=== PATIENT | female | born 1950 | race Caucasian/White ===

== ENCOUNTER 2017-04-09 09:35 | Outpatient (CLI) | payer MEDICARE, OTHER | END 2017-04-09 09:36 | disposition home or self-care (01) | LOC: LAB.R 09:35 | PROVIDERS: ATTEND Family Medicine | DX: R31.9 Hematuria, unspecified (principal) | CPT/HCPCS: 87086 ==

== ENCOUNTER 2017-04-22 15:12 | Outpatient (CLI) | payer MEDICARE, OTHER | END 2017-04-22 15:13 | disposition EMS.NT | LOC: EMS 15:12 | PROVIDERS: ATTEND Surgery | DX: R51 Headache (principal); M54.5 Low back pain; V02.00XA Pedestrian on foot injured in collision with two- or three-wheeled motor vehicle in nontraffic accident, initial encounter; Y92.512 Supermarket, store or market as the place of occurrence of the external cause ==

== ENCOUNTER 2017-04-22 15:47 | Emergency (ER) | payer MEDICARE, OTHER ==
[2017-04-22 15:54] VITALS: BP 135/73
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
--- NOTE | 2017-04-22 17:50 | CT Preliminary Report ---
Exam: CT Head W/O IMPRESSION: Mild chronic changes. No acute disease. [facility] SITE ID: [id number]
--- NOTE | 2017-04-22 17:52 | CT Report ---
EXAM: CT HEAD EXAM DATE: 04/22/2017 05:38 PM. CLINICAL HISTORY: Fall head injury. COMPARISON: None. TECHNIQUE: Multiaxial CT images were obtained from the foramen magnum to the vertex. IV contrast: Non e. Reformats: Coronal. In accordance with CT protocol optimization, one or more of the following dose reduction techniques w ere utilized for this exam: automated exposure control, adjustment of mA and/or KV based on patient s ize, or use of iterative reconstructive technique. FINDINGS: Parenchyma: No intraparenchymal hemorrhage. No evidence of mass, midline shift, or CT findings of acu te infarction. Mcfarlane-white differentiation is distinct. Extraaxial Spaces: Normal for age. No subdural or epidural collections. Ventricles: The ventricles and cortical sulci are enlarged, consistent with age-related tissue loss. Sinuses: Imaged paranasal sinuses, orbits, and mastoids show no significant abnormality. Bones: Unremarkable. Other: None. IMPRESSION: Mild chronic changes. No acute disease. [facility] Referring Provider Line: [phone] SITE ID: [id number]
[2017-04-22] MEDS ORDERED: ONDANSETRON ODT 4 MG TABLET TL STA (17:53)
[2017-04-22] MEDS ORDERED: IBUPROFEN 800 MG TABLET PO STA (17:53)
[2017-04-22] MEDS ORDERED: IBUPROFEN 800 MG TABLET PO ONE (18:02)
[2017-04-22] MEDS ORDERED: ONDANSETRON ODT 4 MG TABLET ONE (18:02)
== END 2017-04-22 18:55 | disposition home or self-care (01) ==
LOC: ED 15:47
DX: S09.90XA Unspecified injury of head, initial encounter (principal); S39.012A Strain of muscle, fascia and tendon of lower back, initial encounter; V09.9XXA Pedestrian injured in unspecified transport accident, initial encounter; Y92.512 Supermarket, store or market as the place of occurrence of the external cause
CPT/HCPCS: 70450; 99283; A9270; Q0162

== ENCOUNTER 2017-09-11 09:52 | Outpatient (CLI) | payer MEDICARE, OTHER ==
[2017-09-11 20:09] LABS: ALBUMIN/GLOBULIN RATIO 1.2 (1.0-2.2); BILIRUBIN,TOTAL 0.5 mg/dL (0.2-1.0); BUN - BLOOD UREA NITROGEN 11 mg/dL (6-20); CALCIUM 8.8 mg/dL (8.5-10.3); CARBON DIOXIDE - CO2 25 mmol/L (21-32); CHLORIDE 110 mmol/L (101-111); CHOL/HDL RATIO 5.6 (<4.4); CHOLESTEROL 280 mg/dL; CREATININE 0.9 mg/dL (0.4-1.0); GFR - MDRD 62 (>89); GLUCOSE 93 mg/dL (70-100); HDL CHOLESTEROL 50 mg/dL; LDL/HDL RATIO 4.1 (<4.4); POTASSIUM 3.9 mmol/L (3.5-5.0); SODIUM 138 mmol/L (135-145); TOTAL PROTEIN 7.1 g/dL (6.7-8.2); TRIGLYCERIDES 137 mg/dL; VLDL CHOLESTEROL 27 mg/dL
== END 2017-09-11 09:53 | disposition home or self-care (01) ==
LOC: LAB.WCP 09:52
PROVIDERS: ATTEND Family Medicine
DX: F32.9 Major depressive disorder, single episode, unspecified (principal); E78.5 Hyperlipidemia, unspecified; G25.0 Essential tremor
CPT/HCPCS: 36415; 80053; 80061

== ENCOUNTER 2018-02-25 23:45 | Emergency (ER) | payer MEDICARE, OTHER ==
--- NOTE | 2018-02-26 00:14 | ED Physician Documentation ---
PD HPI ABD PAIN - Stated complaint Stated Complaint: R SIDE/BACK PX - Chief complaint Chief Complaint: Abd Pain - History obtained from History obtained from: Patient - History of Present Illness Timing - onset: Enter time (18:00), Today Timing - duration: Hours Timing - details: Abrupt onset, Waxing and waning Quality: Pain Location: RLQ Radiation: Right flank Improved by: Other (no ameliorating factors) Worsened by: Other (no exacerbating factors) Associated symptoms: Nausea, Vomiting, Diarrhea. No: Fever, Constipation Recently seen: Not recently seen Review of Systems Constitutional: denies: Fever Cardiac: reports: Reviewed and negative Respiratory: reports: Reviewed and negative GI: reports: Abdominal Pain, Nausea, Vomiting, Diarrhea : denies: Dysuria, Frequency, Hematuria PD PAST MEDICAL HISTORY - Past Medical History Past Medical History: Yes Neuro: Tremors - Past Surgical History Past Surgical History: Yes HEENT: Tonsil/Adenoidectomy Derm: Skin cancer surgery - Allergies Allergies/Adverse Reactions: Allergies Allergy/AdvReac Type Severity Reaction Status Date / Time amoxicillin Allergy Unknown Verified 02/25/18 23:54 - Social History Does the pt smoke?: No Smoking Status: Never smoker Does the pt drink ETOH?: No Does the pt have substance abuse?: No - Immunizations Immunizations are current?: Yes - POLST Patient has POLST: No PD ED PE NORMAL - Vitals Vital signs reviewed: Yes - General General: Alert and oriented X 3, No acute distress, Well developed/nourished - HEENT HEENT: Moist mucous membranes - Cardiac Cardiac: RRR, No murmur - Respiratory Respiratory: No respiratory distress, Clear bilaterally - Abdomen Abdomen: Normal bowel sounds, Soft, Non tender, Non distended - Back Back: No CVA TTP Results - Vitals Vitals: Vital Signs - 24 hr 02/25/18 02/26/18 02/26/18 23:49 01:05 02:18 Temperature 36.9 C 36.9 C Heart Rate 70 68 64 Respiratory 17 18 17 Rate Blood Pressure 136/64 H 118/60 111/56 L O2 Saturation 95 95 97 Oxygen O2 Source Room air - Labs Labs: Laboratory Tests 02/26/18 02/26/18 02/26/18 00:05 00:40 00:40 WBC 7.7 RBC 4.50 Hgb 11.7 L Hct 37.4 MCV 83.1 MCH 25.9 L MCHC 31.2 L RDW 17.5 H Plt Count 223 MPV 9.0 Neut # 6.3 Lymph # 1.1 L [place] # 0.2 Eos # 0.0 Baso # 0.0 Absolute Nucleated RBC 0.00 Nucleated RBC % 0.0 Sodium 138 Potassium 3.6 Chloride 109 Carbon Dioxide 21 Anion Gap 8.0 BUN 14 Creatinine 1.2 H Estimated GFR (MDRD) 45 L Glucose 143 H Calcium 8.8 Urine Color YELLOW Urine Clarity HAZY Urine pH 8.0 H Ur Specific [place] 1.015 Urine Protein NEGATIVE Urine Glucose (UA) NEGATIVE Urine Ketones TRACE Urine Occult Blood SMALL H Urine Nitrite NEGATIVE Urine Bilirubin NEGATIVE Urine Urobilinogen 0.2 (NORMAL) Ur Leukocyte Esterase NEGATIVE Urine RBC 6-10 H Urine WBC 0-3 Ur Squamous Epith Cells FEW Squamous Amorphous Sediment Moderate Urine Bacteria Few Ur Microscopic Review INDICATED Urine Culture Comments NOT INDICATED - Rads (name of study) CT A/P Radiology: Prelim report reviewed, See rad report PD MEDICAL DECISION MAKING - ED course Complexity details: reviewed results, re-evaluated patient, considered differential, d/w patient, d/w family ED course: On reevaluation, after tests resulted and IV toradol and zofran, patient reports resolution of her symptoms. Departure - Departure Disposition: 01 Home, Self Care Clinical Impression: Renal colic Condition: Good Instructions: ED Stone Renal W Colic Follow-Up: Raz Negron MD [Primary Care Provider] - Discharge Date/Time: 02/26/18 02:25
[2018-02-26 00:16] LABS: BILIRUBIN,URINE NEGATIVE (NEGATIVE); GLUCOSE, URINE (UA) NEGATIVE (NEGATIVE); KETONES,URINE (UA) TRACE mg/dL (NEGATIVE); LEUKOCYTE ESTERASE, URINE NEGATIVE (NEGATIVE); NITRITE,URINE NEGATIVE (NEGATIVE); OCCULT BLOOD,URINE SMALL (NEGATIVE); PROTEIN,URINE NEGATIVE (NEGATIVE); UROBILINOGEN,URINE 0.2 (NORMAL) E.U./dL (NORMAL)
[2018-02-26 00:17] LABS: CLARITY,URINE HAZY (CLEAR)
[2018-02-26 00:23] LABS: AMORPHOUS SEDIMENT,UR Moderate /LPF; BACTERIA,URINE Few /HPF (None Seen); SQUAMOUS EPITHELIAL CELL,UR FEW Squamous (<= Few)
[2018-02-26] MEDS ORDERED: ONDANSETRON 4 MG/2 ML VIAL IVP STA (00:31)
[2018-02-26] MEDS ORDERED: KETOROLAC 60 MG/2 ML VIAL IVP STA (00:31)
[2018-02-26 00:55] LABS: BASOPHILS % (AUTO) 0.3 %; HGB - HEMOGLOBIN 11.7 g/dL (12.0-16.0); LYMPHOCYTES # (AUTO) 1.1 10^3/uL (1.5-3.5); MEAN CORPUSCULAR HEMOGLOBIN 25.9 pg (27.0-31.0); MEAN CORPUSCULAR HGB CONC 31.2 g/dL (32.0-36.0); MEAN CORPUSCULAR VOLUME 83.1 fL (81.0-99.0); MONOCYTES # (AUTO) 0.2 10^3/uL (0.0-1.0); NEUTROPHILS # (AUTO) 6.3 10^3/uL (1.5-6.6); NEUTROPHILS % (AUTO) 82.7 %; PLT - PLATELET COUNT 223 10^3/uL (130-450); RED CELL DISTRIBUTION WIDTH 17.5 % (12.0-15.0); WHITE BLOOD COUNT 7.7 x10^3/uL (4.8-10.8)
[2018-02-26 01:02] LABS: CALCIUM 8.8 mg/dL (8.5-10.3); CREATININE 1.2 mg/dL (0.4-1.0)
--- NOTE | 2018-02-26 01:27 | CT Report ---
EXAM: CT ABDOMEN AND PELVIS (CT KUB) EXAM DATE: 02/26/2018 01:00 AM. CLINICAL HISTORY: Right flank pain. COMPARISONS: 10/20/2010. TECHNIQUE: Routine axial helical CT imaging was performed through the abdomen and pelvis without IV c ontrast. Reconstructions: Coronal and sagittal. In accordance with CT protocol optimization, one or more of the following dose reduction techniques w ere utilized for this exam: automated exposure control, adjustment of mA and/or KV based on patient s ize, or use of iterative reconstructive technique. FINDINGS: Lung Bases: Bibasilar atelectasis. Right Kidney/Ureter: Multiple (at least 3) tiny intrarenal calculi, the largest 2-3 mm in the lower p ole. Mild perinephric and periureteric fat stranding. No hydronephrosis or hydroureter. No ureteral c alculi. Left Kidney/Ureter: Multiple (at least 5) tiny intrarenal calculi, the largest 5 mm in the upper pole . No hydronephrosis or hydroureter. No perinephric fat stranding. Other Solid Organs: Stable tiny calcified splenic granulomata. Noncontrast images of the solid organs are otherwise grossly unremarkable. Gallbladder/Bile Ducts: Unremarkable. Peritoneal Cavity: Moderate sized paraesophageal type hiatal hernia containing the proximal stomach, increased in size compared to 2010. The bowel is grossly unremarkable, without evident focal wall thi ckening or adjacent mesenteric fat stranding to suggest acute inflammatory process, or evidence of marie wel obstruction. The appendix is normal. No free fluid, pneumoperitoneum, or samantha adenopathy. Pelvic Organs: 2-3 mm stone along the posterior bladder wall (3/139). 1.9 cm benign-appearing left ov ingrid cyst (3/118). Noncontrast images of the visualized reproductive organs are otherwise unremarkab le. Vasculature: Mild atherosclerotic calcifications within the aorta and iliac arteries. Bones: T11 vertebral body hemangioma. No acute bony abnormality. Other: None. IMPRESSION: 1. 2-3 mm bladder calculus. Mild right perinephric and periureteric fat stranding, likely sequela of recent stone passage. No hydronephrosis or hydroureter. 2. Nonobstructive bilateral intrarenal calculi. 3. Interval increased moderate sized paraesophageal type hiatal hernia. 4. 1.9 cm benign-appearing left ovarian cyst. No follow-up imaging is needed per ACR white paper. [facility] Referring Provider Line: [phone] SITE ID: [id number]
[2018-02-26 02:20] VITALS: BP 111/56
== END 2018-02-26 02:25 | disposition home or self-care (01) ==
LOC: ED 23:45
DX: N20.0 Calculus of kidney (principal); N21.0 Calculus in bladder; N83.202 Unspecified ovarian cyst, left side
CPT/HCPCS: 36415; 74176; 80048; 81001; 81003; 85025; 87086; 96374; 96375; 99283

== ENCOUNTER 2018-05-13 08:00 | Outpatient (CLI) | payer MEDICARE, OTHER ==
[2018-05-13 12:33] LABS: BASOPHILS % (AUTO) 0.9 %; EOSINOPHILS # (AUTO) 0.1 10^3/uL (0.0-0.7); EOSINOPHILS % (AUTO) 1.7 %; HGB - HEMOGLOBIN 12.7 g/dL (12.0-16.0); LYMPHOCYTES # (AUTO) 1.5 10^3/uL (1.5-3.5); LYMPHOCYTES % (AUTO) 39.8 %; MEAN CORPUSCULAR HEMOGLOBIN 27.2 pg (27.0-31.0); MEAN CORPUSCULAR HGB CONC 32.2 g/dL (32.0-36.0); MEAN CORPUSCULAR VOLUME 84.4 fL (81.0-99.0); MEAN PLATELET VOLUME 9.9 fL (7.9-10.8); MONOCYTES # (AUTO) 0.3 10^3/uL (0.0-1.0); MONOCYTES % (AUTO) 7.9 %; NEUTROPHILS # (AUTO) 1.9 10^3/uL (1.5-6.6); NEUTROPHILS % (AUTO) 49.7 %; PLT - PLATELET COUNT 208 10^3/uL (130-450); RED BLOOD COUNT 4.66 10^6/uL (4.20-5.40); RED CELL DISTRIBUTION WIDTH 17.3 % (12.0-15.0); WHITE BLOOD COUNT 3.7 x10^3/uL (4.8-10.8)
[2018-05-13 13:24] LABS: ALBUMIN 3.7 g/dL (3.2-5.5); ALBUMIN/GLOBULIN RATIO 1.1 (1.0-2.2); ALKALINE PHOSPHATASE 91 IU/L (42-121); ALT ALANINE AMINOTRANSFERASE 20 IU/L (10-60); AST ASPARTATE AMINOTRANSFERASE 21 IU/L (10-42); BILIRUBIN,TOTAL 0.8 mg/dL (0.2-1.0); BUN - BLOOD UREA NITROGEN 12 mg/dL (6-20); CALCIUM 8.8 mg/dL (8.5-10.3); CARBON DIOXIDE - CO2 25 mmol/L (21-32); CHLORIDE 111 mmol/L (101-111); CHOL/HDL RATIO 5.5 (<4.4); CHOLESTEROL 237 mg/dL; CREATININE 0.9 mg/dL (0.4-1.0); GFR - MDRD 62 (>89); GLUCOSE 97 mg/dL (70-100); HDL CHOLESTEROL 43 mg/dL; LDL CHOLESTEROL,CALCULATED 171 mg/dL; SODIUM 140 mmol/L (135-145); TOTAL PROTEIN 7.1 g/dL (6.7-8.2); VLDL CHOLESTEROL 23 mg/dL
== END 2018-05-13 08:01 | disposition home or self-care (01) ==
LOC: LAB.WCP 08:00
PROVIDERS: ATTEND Family Medicine
DX: E78.5 Hyperlipidemia, unspecified (principal); K21.9 Gastro-esophageal reflux disease without esophagitis
CPT/HCPCS: 36415; 80053; 80061; 83721; 85025

== ENCOUNTER 2019-05-18 08:00 | Outpatient (CLI) | payer MEDICARE, OTHER ==
[2019-05-18 12:37] LABS: BASOPHILS % (AUTO) 0.9 %; EOSINOPHILS # (AUTO) 0.1 10^3/uL (0.0-0.7); EOSINOPHILS % (AUTO) 1.9 %; HGB - HEMOGLOBIN 12.6 g/dL (12.0-16.0); LYMPHOCYTES # (AUTO) 1.5 10^3/uL (1.5-3.5); LYMPHOCYTES % (AUTO) 34.8 %; MEAN CORPUSCULAR HGB CONC 29.7 g/dL (32.0-36.0); MEAN CORPUSCULAR VOLUME 87.6 fL (81.0-99.0); MEAN PLATELET VOLUME 12.1 fL (7.9-10.8); MONOCYTES # (AUTO) 0.4 10^3/uL (0.0-1.0); MONOCYTES % (AUTO) 8.4 %; NEUTROPHILS # (AUTO) 2.3 10^3/uL (1.5-6.6); NEUTROPHILS % (AUTO) 53.8 %; PLT - PLATELET COUNT 259 10^3/uL (130-450); RED BLOOD COUNT 4.84 10^6/uL (4.20-5.40); RED CELL DISTRIBUTION WIDTH 16.8 % (12.0-15.0); WHITE BLOOD COUNT 4.3 x10^3/uL (4.8-10.8)
[2019-05-18 13:34] LABS: ALBUMIN 3.9 g/dL (3.2-5.5); ALBUMIN/GLOBULIN RATIO 1.2 (1.0-2.2); ALKALINE PHOSPHATASE 102 IU/L (42-121); ALT ALANINE AMINOTRANSFERASE 18 IU/L (10-60); AST ASPARTATE AMINOTRANSFERASE 19 IU/L (10-42); BILIRUBIN,TOTAL 0.8 mg/dL (0.2-1.0); BUN - BLOOD UREA NITROGEN 10 mg/dL (6-20); CALCIUM 9.3 mg/dL (8.5-10.3); CARBON DIOXIDE - CO2 24 mmol/L (21-32); CHLORIDE 111 mmol/L (101-111); CHOL/HDL RATIO 4.3 (<4.4); CHOLESTEROL 200 mg/dL; GFR - MDRD 55 (>89); GLUCOSE 96 mg/dL (70-100); HDL CHOLESTEROL 47 mg/dL; LDL CHOLESTEROL,CALCULATED 133 mg/dL; LDL/HDL RATIO 2.8 (<4.4); SODIUM 143 mmol/L (135-145); TOTAL PROTEIN 7.2 g/dL (6.7-8.2); VLDL CHOLESTEROL 20 mg/dL
== END 2019-05-18 23:59 | disposition home or self-care (01) ==
LOC: LAB.WCP 08:00
PROVIDERS: ATTEND Family Medicine
DX: E78.5 Hyperlipidemia, unspecified (principal)
CPT/HCPCS: 36415; 80053; 80061; 83721; 84443; 85025

== ENCOUNTER 2019-05-28 09:34 | Outpatient (CLI) | payer MEDICARE, OTHER ==
--- NOTE | 2019-05-31 11:10 | Mammography Report ---
Reason: SCREENING MAMMO Procedure Date: 05/28/2019 Accession Number: [id number] / [id number] Procedure: [facility] - Screening Mammo w/Cam CPT Code: FULL RESULT: EXAM: Screening Mammo w/Cam DATE: 05/28/2019 10:35 AM CLINICAL HISTORY: Routine screening. No reported personal history of breast cancer. Family history breast cancer in mother at age 38. TECHNIQUE: (B) - Bilateral CC and MLO views were obtained. COMPARISON: 02/07/2016 through 02/04/2014 PARENCHYMAL PATTERN: (A) - The breasts demonstrate scattered fibroglandular densities bilaterally. FINDINGS: Bilateral breasts: Stable symmetric mild nipple retraction. Motion artifact on the right MLO view limits evaluation. There is mild global limitation of images due to patient and/or tissue mobility restrictions similar to prior exams. There are no suspicious masses, calcifications, or areas of distortion. IMPRESSION: Incomplete examination. BI-RADS category 0. RECOMMENDATION: (REPEAT) - Motion artifact right MLO view technical repeat is recommended. An addendum to this report can be issued. BI-RADS CATEGORY: (0) - Incomplete Examination - need additional evaluation. STANDARD QUALIFYING STATEMENTS: 1. This examination was not reviewed with the aid of Computer-Aided Detection (CAD). 2. A negative or benign imaging report should not preclude biopsy if clinically suspicious findings are present. 3. Dense breasts may obscure an underlying neoplasm. 4. This examination was reviewed with the aid of 3D breast imaging (tomosynthesis).
== END 2019-05-28 09:35 | disposition home or self-care (01) ==
LOC: DI 09:34
PROVIDERS: ATTEND Family Medicine
DX: Z12.31 Encounter for screening mammogram for malignant neoplasm of breast (principal); Z80.3 Family history of malignant neoplasm of breast
CPT/HCPCS: 77063; 77067

== ENCOUNTER 2019-06-03 12:33 | Outpatient (CLI) | payer MEDICARE, OTHER ==
--- NOTE | 2019-06-08 06:51 | Mammography Report ---
Reason: TECHNICAL REPEAT - SCREENING MAMMO Procedure Date: 06/03/2019 Accession Number: [id number] / [id number] Procedure: [facility] - Screening Mammo w/Cam CPT Code: FULL RESULT: FINDINGS: IMPRESSION: For results, please see the addended screening mammogram report dated 05/28/2019.
== END 2019-06-03 12:34 | disposition home or self-care (01) ==
LOC: DI 12:33
PROVIDERS: ATTEND Family Medicine
DX: Z12.31 Encounter for screening mammogram for malignant neoplasm of breast (principal)
CPT/HCPCS: 77063; 77067

== ENCOUNTER 2019-08-09 15:45 | Emergency (ER) | payer MEDICARE, OTHER ==
[2019-08-09 16:13] LABS: BILIRUBIN,URINE NEGATIVE (NEGATIVE); GLUCOSE, URINE (UA) NEGATIVE (NEGATIVE); KETONES,URINE (UA) TRACE mg/dL (NEGATIVE); LEUKOCYTE ESTERASE, URINE MODERATE (NEGATIVE); NITRITE,URINE NEGATIVE (NEGATIVE); OCCULT BLOOD,URINE LARGE (NEGATIVE); PH,URINE 7.5 PH (5.0-7.5); PROTEIN,URINE TRACE mg/dL (NEGATIVE); UROBILINOGEN,URINE 0.2 (NORMAL) E.U./dL (NORMAL)
[2019-08-09 16:17] LABS: CLARITY,URINE CLOUDY (CLEAR)
[2019-08-09 16:18] LABS: BASOPHILS % (AUTO) 0.3 %; EOSINOPHILS # (AUTO) 0.1 10^3/uL (0.0-0.7); EOSINOPHILS % (AUTO) 0.6 %; HGB - HEMOGLOBIN 12.5 g/dL (12.0-16.0); LYMPHOCYTES # (AUTO) 1.2 10^3/uL (1.5-3.5); LYMPHOCYTES % (AUTO) 14.4 %; MEAN CORPUSCULAR HEMOGLOBIN 26.7 pg (27.0-31.0); MEAN CORPUSCULAR HGB CONC 30.1 g/dL (32.0-36.0); MEAN CORPUSCULAR VOLUME 88.5 fL (81.0-99.0); MEAN PLATELET VOLUME 10.8 fL (7.9-10.8); MONOCYTES # (AUTO) 0.3 10^3/uL (0.0-1.0); MONOCYTES % (AUTO) 3.6 %; NEUTROPHILS % (AUTO) 80.8 %; PLT - PLATELET COUNT 255 10^3/uL (130-450); RED BLOOD COUNT 4.69 10^6/uL (4.20-5.40); RED CELL DISTRIBUTION WIDTH 16.5 % (12.0-15.0); WHITE BLOOD COUNT 8.6 x10^3/uL (4.8-10.8)
[2019-08-09 16:21] LABS: AMORPHOUS SEDIMENT,UR Marked /LPF; BACTERIA,URINE Moderate /HPF (None Seen); SQUAMOUS EPITHELIAL CELL,UR NONE SEEN (<= Few)
[2019-08-09 16:31] LABS: ALBUMIN 3.9 g/dL (3.2-5.5); ALBUMIN/GLOBULIN RATIO 1.2 (1.0-2.2); BILIRUBIN,TOTAL 0.8 mg/dL (0.2-1.0); CALCIUM 9.2 mg/dL (8.5-10.3); CREATININE 0.9 mg/dL (0.4-1.0); TOTAL PROTEIN 7.1 g/dL (6.7-8.2)
--- NOTE | 2019-08-09 18:18 | ED Physician Documentation ---
History of Present Illness - Stated complaint Stated Complaint: VOMMITING, DIARRHEA, LT SIDE PX - Chief complaint Chief Complaint: Abd Pain - Additonal information Additional information: This is a 69-year-old female with a history of kidney stones who presents with left-sided flank pain, nausea, vomiting, and diarrhea that began this morning. Patient states that this feels similar to when she had a kidney stones in the past. Her vomiting and diarrhea have been non-bloody. Review of Systems Constitutional: denies: Fever Cardiac: denies: Chest pain / pressure Respiratory: denies: Dyspnea GI: reports: Abdominal Pain, Nausea : reports: Frequency Skin: denies: Rash Neurologic: denies: Generalized weakness PD PAST MEDICAL HISTORY - Past Medical History Neuro: Tremors - Past Surgical History Past Surgical History: Yes HEENT: Tonsil/Adenoidectomy Derm: Skin cancer surgery - Present Medications Home Medications: Ambulatory Orders Medication Instructions Recorded Confirmed Cefdinir 300 mg PO BID #14 capsule 08/09/19 Oxycodone HCl/Acetaminophen 1 - 2 each PO Q6H PRN #7 tablet 08/09/19 [Percocet 5-325 mg Tablet] - Allergies Allergies/Adverse Reactions: Allergies Allergy/AdvReac Type Severity Reaction Status Date / Time amoxicillin Allergy Unknown Verified 02/25/18 23:54 cephalexin Allergy Unknown Verified 08/10/19 08:40 - Social History Does the pt smoke?: No Smoking Status: Never smoker Does the pt drink ETOH?: No Does the pt have substance abuse?: No - Immunizations Immunizations are current?: Yes - POLST Patient has POLST: No PD ED PE NORMAL - Vitals Vital signs reviewed: Yes - General General: Alert and oriented X 3 - HEENT HEENT: PERRL - Neck Neck: Supple, no meningeal sign - Cardiac Cardiac: RRR - Respiratory Respiratory: Clear bilaterally - Abdomen Abdomen: Soft, Non tender, Non distended - Derm Derm: Warm and dry - Extremities Extremities: No deformity - Neuro Neuro: Alert and oriented X 3 - Psych Psych: Normal mood, Normal affect Results - Vitals Vitals: Oxygen O2 Source Room air - Labs Labs: Microbiology 08/09/19 16:09 Urine Culture - Final Urine,Clean Catch >100,000 COLONIES/ML Polymicrobial growth including potential pathogens. This is suggestive of skin or other contamination. Laboratory Tests 10/08/09/19 08/09/19 16:09 16:13 16:13 WBC 8.6 RBC 4.69 Hgb 12.5 Hct 41.5 MCV 88.5 MCH 26.7 L MCHC 30.1 L RDW 16.5 H Plt Count 255 MPV 10.8 Neut # (Auto) 7.0 H Lymph # (Auto) 1.2 L [place] # (Auto) 0.3 Eos # (Auto) 0.1 Baso # (Auto) 0.0 Absolute Nucleated RBC 0.00 Nucleated RBC % 0.0 Sodium 138 Potassium 4.1 Chloride 105 Carbon Dioxide 24 Anion Gap 9.0 BUN 19 Creatinine 0.9 Estimated GFR (MDRD) 62 L Glucose 171 H Calcium 9.2 Total Bilirubin 0.8 AST 17 ALT 18 Alkaline Phosphatase 97 Total Protein 7.1 Albumin 3.9 Globulin 3.2 Albumin/Globulin Ratio 1.2 Lipase 30 Urine Color YELLOW Urine Clarity CLOUDY Urine pH 7.5 Ur Specific [place] 1.010 Urine Protein TRACE Urine Glucose (UA) NEGATIVE Urine Ketones TRACE Urine Occult Blood LARGE H Urine Nitrite NEGATIVE Urine Bilirubin NEGATIVE Urine Urobilinogen 0.2 (NORMAL) Ur Leukocyte Esterase MODERATE H Urine RBC 11-25 H Urine WBC 6-10 H Ur Squamous Epith Cells NONE SEEN Amorphous Sediment Marked Urine Bacteria Moderate H Ur Microscopic Review INDICATED Urine Culture Comments INDICATED - Rads (name of study) Abd/pelvis CT Radiology: Other (Calcific density in bladder likely represent passed stones. Cystic renal structure that likely needs follow up imaging.) PD MEDICAL DECISION MAKING - ED course Complexity details: considered differential (Nephrolithiasis, UTI, pyelonephritis, AAA, colitis, pancreatitis) ED course: On initial exam patient is uncomfortable but non-toxic, her pain subsequently resolved just before going to CT. CT shows what is likely recently passed kidney stones in the bladder, which fits with patients improvement of pain. It also shows an incidental cystic renal structure that I informed patient of and that she will need follow up imaging on with her PCP. Labs are unrevealing other than she has a possible UTI, which was treated with ceftriaxone and a course of cefdinir. PCP follow up, narcotic safety/avoidance if possible, and return precautions discussed and patient was discharged home in good condition. Departure - Departure Disposition: 01 Home, Self Care Clinical Impression: Kidney stone Condition: Good Instructions: ED Stone Renal W Colic Follow-Up: Raz Negron MD [Primary Care Provider] - Prescriptions: Cefdinir 300 mg PO BID #14 capsule Oxycodone HCl/Acetaminophen [Percocet 5-325 mg Tablet] 1 - 2 each PO Q6H PRN #7 tablet PRN Reason: pain Comments: You were seen today for flank pain, it appears you have a kidney stone which has passed into your bladder. It also looks like he may have a urinary tract infection. Please take the antibiotic as prescribed. I hope you do not have recurrence of your pain since the kidney stone appears to have passed, but if you do, you may take ibuprofen, if this is not effective you may use the Percocet sparingly, and only for the time needed. If you develop any worsening pain, or fever, return to the emergency department. Do not drink alcohol or drive while taking narcotic pain medication. You also have a cystic structure on one of your ovaries, you should have an ultrasound to further evaluate this, this can be ordered by your primary care provider. Note that many narcotic pain relievers also contain Tylenol/acetaminophen. Please ensure that your total dose of acetaminophen from all sources does not exceed 3 g (3000 mg) per day. You may get constipated while on this medication. Take a stool softener such as Colace twice a day while you are on it. Also add an myfq-[id number]-kxfstse laxative such as senna or MiraLAX on any day that you do not have a bowel movement. If you received a narcotic pain medication or sedative while in the emergency department, do not drive for the next 24 hours. Discharge Date/Time: 08/09/19 21:53
[2019-08-09] MEDS ORDERED: MORPHINE 2 MG/ML CARPUJECT IVP STA (18:46)
[2019-08-09] MEDS ORDERED: SODIUM CHLORIDE 0.9% 1,000 ML IV ONE (18:46)
[2019-08-09] MEDS ORDERED: ONDANSETRON 4 MG/2 ML VIAL IVP STA (18:46)
[2019-08-09] MEDS ORDERED: cefTRIAXone 1 GM in SODIUM CHLORIDE 0.9% MINIBAG 100 ML IV STA (18:47)
[2019-08-09] MEDS ORDERED: IOVERSOL 320 100 ML VIAL IVP ONE ×2 (19:00→19:45)
[2019-08-09 20:25] VITALS: BP 117/65
--- NOTE | 2019-08-09 20:25 | CT Report ---
Reason: left flank pain, vomiting, diarrhea Procedure Date: 08/09/2019 Accession Number: [id number] / [id number] Procedure: CT - Abdomen/Pelvis W CPT Code: FULL RESULT: EXAM: CT ABDOMEN AND PELVIS WITH CONTRAST. EXAM DATE: 08/09/2019 07:43 PM. CLINICAL HISTORY: Left flank pain, vomiting, diarrhea. COMPARISONS: ABDOMEN/PELVIS W/O 02/26/2018 12:50 AM. TECHNIQUE: Routine helical CT imaging was performed through the abdomen and pelvis. IV contrast: OPTI-320 100 mL. Enteric contrast: No. Reconstructions: Coronal and sagittal. In accordance with CT protocol optimization, one or more of the following dose reduction techniques were utilized for this exam: automated exposure control, adjustment of mA and/or KV based on patient size, or use of iterative reconstructive technique. FINDINGS: Lung Bases: Unremarkable. Liver: Normal. No masses. Gallbladder/Bile Ducts: Unremarkable. Spleen: Coarse punctate calcification, no focal mass. Normal size. Pancreas: Normal. Adrenal Glands: Normal. Kidneys: There is some mild fullness of the left renal pelvis, which is new compared to the prior exam. No significant dilatation of the calyces. Some calcifications in the lower pole of the kidney are again seen, one slightly increased in size measuring up to 3 mm. No calcifications along the course of the left ureter, but there may be some slight urothelial enhancement and thickening in the distal left ureter near the ureterovesical junction. Two punctate tiny calcifications in the right kidney, better seen on the prior exam. No hydronephrosis. Peritoneal Cavity/Bowel: Normal. No free fluid, free air or adenopathy. No masses or acute inflammatory process. The appendix is well visualized and normal. Pelvic Organs: In the superior aspect of the urinary bladder, in the dependent portion, there is one round calcification that is 3 mm. Nearby there may be a smaller more subtle calcific stone, these are best seen on images 75 and 76 of series 4. Similar-appearing tiny punctate calcific density that may or may not be in the urinary bladder is seen on image 80 of series 4. In the left adnexa there is a cystic structure measuring 3.1 x 3.8 x 2.6 cm. It has slightly increased in size compared to the prior in which it measured 2.4 x 3.1 x 1.9 cm. There are a few scattered pelvic phleboliths. Vasculature: No aneurysms or other significant abnormality. Bones: No acute bony abnormality. A hemangioma is again seen in the T11 vertebral body. Other: None. IMPRESSION: 1. Mild dilatation of the left renal pelvis, new compared to the prior study, and some calcific densities dependently in the bladder are likely recently passed stones. No stones in the left ureter or in the region of the left ureterovesical junction at this time. 2. 3.8 cm cystic structure in the left adnexa is slightly larger than on the prior exam from February 2018. Consider outpatient pelvic ultrasound to evaluate if there is any concerning internal architecture, especially given patient's age. [facility]
== END 2019-08-09 21:53 | disposition home or self-care (01) ==
LOC: ED 15:45
DX: N20.0 Calculus of kidney (principal); N83.202 Unspecified ovarian cyst, left side
CPT/HCPCS: 36415; 74177; 80053; 81001; 83690; 85025; 87086; 96361; 96365; 96375; 99283; 99284; Q9967; 81003

== ENCOUNTER 2019-08-23 14:51 | Outpatient (CLI) | payer MEDICARE, OTHER ==
--- NOTE | 2019-08-23 16:42 | Ultrasound Report ---
Reason: OVARIAN MASS Procedure Date: 08/23/2019 Accession Number: [id number] / [id number] Procedure: US - Pelvic w/Transvaginal CPT Code: Final Report FULL RESULT: EXAM: PELVIC ULTRASOUND EXAM DATE: 08/23/2019 04:12 PM. CLINICAL HISTORY: 69-year-old postmenopausal female. OVARIAN MASS. COMPARISON: ABDOMEN/PELVIS W/ 08/09/2019 7:33 PM ABDOMEN/PELVIS W/O 02/26/2018 12:50 AM. TECHNIQUE: Realtime transabdominal pelvic scan performed to identify the uterus and adnexa and as an overview of other pelvic structures, followed by transvaginal scan to provide greater detail of the uterus and adnexa, with static image documentation. FINDINGS: Uterus: 5.6 x 2.8 x 4.0 cm, volume 32 cc. Retroverted position. Normal overall size and echotexture. Masses: None. Endometrium: Approximately 2 mm. Moderate amount of fluid in the endometrial cavity. There are 0.7 x 0.7 x 0.9 cm, 0.4 cm, and 0.4 cm lobular nodular foci along the endometrium suggesting polyps. Cervix: Moderate fluid in the endocervical canal. Right Ovary: 0.9 x 0.4 x 0.5 cm, volume 0.1 cc. Poorly visualized. Left Ovary/adnexa: 4.0 x 2.5 x 2.9 cm, volume 16 cc. Simple cyst. Free Fluid: None. Other: None. IMPRESSION: 1. In the left ovary/adnexa, there is a 4.0 x 2.5 x 2.9 cm simple cyst which could represent an inclusion cyst or possibly cystadenoma. Recommend ultrasound follow-up in 1 year. 2. Moderate fluid in the interatrial cavity. The overall endometrial lining appears thin, but there are 9 mm, 4 mm, and 4 mm nodular foci along the endometrial lining suggesting polyps. Attention on follow-up is recommended. RADIA
== END 2019-08-23 14:52 | disposition home or self-care (01) ==
LOC: DI 14:51
PROVIDERS: ATTEND Family Medicine
DX: N83.292 Other ovarian cyst, left side (principal)
CPT/HCPCS: 76830; 76856

== ENCOUNTER 2019-08-27 15:43 | Outpatient (CLI) | payer MEDICARE, OTHER | END 2019-08-27 15:44 | disposition home or self-care (01) | LOC: LAB 15:43 | PROVIDERS: ATTEND Obstetrics & Gynecology | DX: N83.9 Noninflammatory disorder of ovary, fallopian tube and broad ligament, unspecified (principal) | CPT/HCPCS: 36415; 85610; 86304 ==

== ENCOUNTER 2019-09-20 14:25 | Outpatient (CLI) | payer MEDICARE, OTHER ==
[2019-09-20 15:09] LABS: BASOPHILS % (AUTO) 0.6 %; EOSINOPHILS # (AUTO) 0.1 10^3/uL (0.0-0.7); EOSINOPHILS % (AUTO) 1.9 %; HGB - HEMOGLOBIN 12.4 g/dL (12.0-16.0); LYMPHOCYTES # (AUTO) 2.5 10^3/uL (1.5-3.5); LYMPHOCYTES % (AUTO) 47.4 %; MEAN CORPUSCULAR HEMOGLOBIN 26.8 pg (27.0-31.0); MEAN CORPUSCULAR HGB CONC 30.5 g/dL (32.0-36.0); MEAN CORPUSCULAR VOLUME 87.7 fL (81.0-99.0); MEAN PLATELET VOLUME 11.4 fL (7.9-10.8); MONOCYTES # (AUTO) 0.4 10^3/uL (0.0-1.0); MONOCYTES % (AUTO) 7.7 %; NEUTROPHILS # (AUTO) 2.2 10^3/uL (1.5-6.6); NEUTROPHILS % (AUTO) 42.2 %; PLT - PLATELET COUNT 230 10^3/uL (130-450); RED BLOOD COUNT 4.63 10^6/uL (4.20-5.40); RED CELL DISTRIBUTION WIDTH 16.2 % (12.0-15.0); WHITE BLOOD COUNT 5.3 x10^3/uL (4.8-10.8)
[2019-09-20 15:17] LABS: ALBUMIN 3.7 g/dL (3.2-5.5); ALBUMIN/GLOBULIN RATIO 1.1 (1.0-2.2); BILIRUBIN,TOTAL 0.4 mg/dL (0.2-1.0); CALCIUM 9.3 mg/dL (8.5-10.3); CREATININE 0.8 mg/dL (0.4-1.0)
== END 2019-09-20 14:26 | disposition home or self-care (01) ==
LOC: LAB 14:25
PROVIDERS: ATTEND Obstetrics & Gynecology
DX: Z01.818 Encounter for other preprocedural examination (principal); N84.0 Polyp of corpus uteri
CPT/HCPCS: 36415; 80053; 85025; 93005

== ENCOUNTER 2019-09-22 07:43 | Day surgery (SDC) | payer MEDICARE, OTHER ==
--- NOTE | 2019-09-21 11:35 | HISTORY & PHYSICAL EXAMINATION ---
HPI - History of Present Illness HPI Comment/Other: CC: PreOp visit HPI: Pt is here today for a preop consult for a hysterscopy. Pt is asking about the prescription for misoprostol/cytotec. Was not at the pharmacy. [facility] is pt's local pharmacy of choice. ...................................................................VITO Samuel September 20, 2019 10:05 AM Patient is a 69 yo here for preop evaluation for hysteroscopy D&C, possible polypectomy Last seen in clinic on 08/27/[address] Krause[address] Had CT scan to assess nephrolithiasis and incidental ovarian mass. She underwent pelvic us. Right adnexal mass, simple in appearance, mesuring 4.0 cm in greatest dimension. Endometrium showed multiple nodules measuring 9 mm in greatest dimension with fluid in cavity. Hysteroscopy D&C was recommended and scheduled for 09/22/19. No change in health hx since time of prior exam. of twins. No SA. No STI/abnl pap. Denies PMB. Current Allergies: AMOXICILLIN (Critical) CEPHALEXIN (CEPHALEXIN) (Critical) Current Allergies: AMOXICILLIN (Critical) CEPHALEXIN (CEPHALEXIN) (Critical) Current Meds: MISOPROSTOL 200 MCG ORAL TABLET (MISOPROSTOL) Please 1 tablet in cheek for 30 minutes and then swallow with a sip of water.; Route: ORAL FLUOCINONIDE 0.05 % EXTERNAL CREAM (FLUOCINONIDE) Apply twice daily to affected areas as needed; Route: EXTERNAL RABEPRAZOLE SODIUM 20 MG TBEC (RABEPRAZOLE SODIUM) TAKE 1 TABLET 30 MINUTES BEFORE BREAKFAST ATORVASTATIN CALCIUM 10 MG TABS (ATORVASTATIN CALCIUM) TAKE 1 TABLET AT BEDTIME LIPITOR 10 MG ORAL TABLET (ATORVASTATIN CALCIUM) Take one tablet by mouth at bedtime; Route: ORAL ACIPHEX 20 MG ORAL TABLET DELAYED RELEASE (RABEPRAZOLE SODIUM) Take one tablet by mouth 30 minutes before breakfast; Route: ORAL TOPAMAX 25 MG ORAL TABLET (TOPIRAMATE) Take three tabs in AM and two in jeanette; Route: ORAL FLUTICASONE PROPIONATE 50 MCG/ACT NASAL SUSPENSION (FLUTICASONE PROPIONATE) Use one spray each nostril twice daily; Route: NASAL ASPIRIN EC 81 MG ORAL TABLET DELAYED RELEASE (ASPIRIN) Take one tablet by mouth daily INDERAL LA 120 MG ORAL CAPSULE EXTENDED RELEASE 24 HOUR (PROPRANOLOL HCL) Take one tablet by mouth twice daily CITALOPRAM HBR TABS 20MG (CITALOPRAM HYDROBROMIDE) TAKE 1 TABLET DAILY Allergies: AMOXICILLIN (Critical) CEPHALEXIN (CEPHALEXIN) (Critical) Medications: MISOPROSTOL 200 MCG ORAL TABLET (MISOPROSTOL) Please 1 tablet in cheek for 30 minutes and then swallow with a sip of water.; Route: ORAL FLUOCINONIDE 0.05 % EXTERNAL CREAM (FLUOCINONIDE) Apply twice daily to affected areas as needed; Route: EXTERNAL RABEPRAZOLE SODIUM 20 MG TBEC (RABEPRAZOLE SODIUM) TAKE 1 TABLET 30 MINUTES BEFORE BREAKFAST ATORVASTATIN CALCIUM 10 MG TABS (ATORVASTATIN CALCIUM) TAKE 1 TABLET AT BEDTIME LIPITOR 10 MG ORAL TABLET (ATORVASTATIN CALCIUM) Take one tablet by mouth at bedtime; Route: ORAL ACIPHEX 20 MG ORAL TABLET DELAYED RELEASE (RABEPRAZOLE SODIUM) Take one tablet by mouth 30 minutes before breakfast; Route: ORAL TOPAMAX 25 MG ORAL TABLET (TOPIRAMATE) Take three tabs in AM and two in jeanette; Route: ORAL FLUTICASONE PROPIONATE 50 MCG/ACT NASAL SUSPENSION (FLUTICASONE PROPIONATE) Use one spray each nostril twice daily; Route: NASAL ASPIRIN EC 81 MG ORAL TABLET DELAYED RELEASE (ASPIRIN) Take one tablet by mouth daily INDERAL LA 120 MG ORAL CAPSULE EXTENDED RELEASE 24 HOUR (PROPRANOLOL HCL) Take one tablet by mouth twice daily CITALOPRAM HBR TABS 20MG (CITALOPRAM HYDROBROMIDE) TAKE 1 TABLET DAILY Problems: Preop exam (ICD-V72.84) (DSP42-V71.818) Seborrhea capitis (ICD-690.11) (JSF45-Z90.0) Endometrial polyp (ICD-621.0) (BEW25-N50.0) Ovarian mass (ICD-620.9) (NYN78-B85.9) Screening mammogram for breast cancer (ICD-V76.12) (NTI23-V42.31) Urolithiasis (ICD-592.9) (DVD72-L52.9) Dyslipidemia (ICD-272.4) (IRO36-Z24.5) Hematuria (ICD-599.70) (MKZ64-C13.9) Frozen right shoulder (ICD-726.0) (PXZ77-C97.01) GERD (ICD-530.81) (ROV03-I44.9) Depression (ICD-311) (KAR50-M70.9) DEGENERATIVE JOINT DISEASE, KNEE (ICD-715.96) (OTF11-T44.9) Headache (ICD-784.0) (PXI62-Y73) Sleep disorder (ICD-780.50) (VJC05-E92.9) CATARACTS, BILATERAL (ICD-366.9) (QQV02-S69.9) FAMILIAL TREMOR (ICD-333.1) (ZCL28-W41.0) HYPERLIPIDEMIA (ICD-272.4) (MOF96-K01.5) ALLERGIC RHINITIS, SEASONAL (ICD-477.0) (ARP73-P77.2) Family History Summary: Legacy Family History Notes: Mother: BrCa at age 45 MGM: HTN Family History Reviewed: 09/20/2019 Family History of a Hx of Breast Cancer for Mother - Entered On: 11/17/2014 Family History of a Hx of Stroke/CVA for Father - Entered On: 11/17/2014 Family History of a Hx of Psychiatric Care for Father - Entered On: 11/17/2014 Social History Summary: Patient has never smoked. Patient has never used smokeless tobacco. Passive Smoke: Y Alcohol Use: N Drug Use: N HIV/High Risk: N Regular Exercise: N Lives in [place] with Retired- [employer] T: none E: none D: none safe at home Social History Reviewed: 09/20/2019 Previous Social History: Patient has never smoked. Patient has never used smokeless tobacco. Passive Smoke: Y Alcohol Use: N Drug Use: N HIV/High Risk: N Regular Exercise: N Risk Factors: Smoked Tobacco Use: Never smoker Smokeless Tobacco Use: Never Passive Smoke Exposure: yes HIV High Risk Behavior: no Caffeine Use: 1 drinks per day Exercise: no Seatbelt Use: 100 % Sun Exposure: occasionally Alcohol Use: no Drug Use: no Vital Signs: Patient Profile: 69 Years Old Female Height: 64 inches Weight: 150 pounds BMI: 25.84 BP sittin / 72 Cuff size: regular Vitals Entered By: VITO Samuel (September 20, 2019 10:05 AM) Meds Reviewed: Done Allergies Reviewed: Done Past Medical History: CATARACTS, BILATERAL (ICD-366.9) FAMILIAL TREMOR (ICD-333.1) HYPERLIPIDEMIA (ICD-272.4) RENAL CALCULUS (ICD-592.0) INCONTINENCE (ICD-788.30) MENOPAUSAL SYNDROME (ICD-627.2) ALLERGIC RHINITIS, SEASONAL (ICD-477.0) Anxiety Cancer-type/status: SKIN Depression Neurological disorders Urinary or Kidney Infection (chronic) Reflux Past Surgical History: Tonsillectomy age 5 L labia cyst removed age 23 Cataract Extraction Cholecystectomy Denies any prior history of complications from anesthesia. Denies any history of surgical complications. [employer]ICE [employer]ER Review of Systems ROS Comments: As per HPI, otherwise remaining systems are negative. Physical Constitutional: alert, no acute distress, well hydrated, well developed, well nourished. Skin: normal turgor, normal color, no rashes. Head: atraumatic, normocephalic. Cardiovascular: RRR. Respiratory: no respiratory distress, clear to auscultation. Neurologic: tremor, alert and oriented Psych: affect and mood appropriate, normal interaction, good eye contact. Impression & Recommendations: Problem # 1: Endometrial polyp (ICD-621.0) (GEG76-X72.0) Preop assessment Risk, benefits, alternatives to procedure discussed. Risks include, but are not limited to, bleeding, infection, damage to nearby tissue and organ including uterine perforation. Consent for hysteroscopy, D&C, polypectomy and transfusion as indicated obtained Preoperative misoprostol sent to pharmacy on record Sent for labs/EKG. Insurer denies CXR To OR on 09/22/19 Other Orders: PRE OP -[id number] (CPT-[id number]) Patient Portal: [id number] Current Allergies: AMOXICILLIN (Critical) CEPHALEXIN (CEPHALEXIN) (Critical) Current Meds: FLUOCINONIDE 0.05 % EXTERNAL CREAM (FLUOCINONIDE) Apply twice daily to affected areas as needed; Route: EXTERNAL RABEPRAZOLE SODIUM 20 MG TBEC (RABEPRAZOLE SODIUM) TAKE 1 TABLET 30 MINUTES BEFORE BREAKFAST ATORVASTATIN CALCIUM 10 MG TABS (ATORVASTATIN CALCIUM) TAKE 1 TABLET AT BEDTIME LIPITOR 10 MG ORAL TABLET (ATORVASTATIN CALCIUM) Take one tablet by mouth at bedtime; Route: ORAL ACIPHEX 20 MG ORAL TABLET DELAYED RELEASE (RABEPRAZOLE SODIUM) Take one tablet by mouth 30 minutes before breakfast; Route: ORAL TOPAMAX 25 MG ORAL TABLET (TOPIRAMATE) Take three tabs in AM and two in jeanette; Route: ORAL FLUTICASONE PROPIONATE 50 MCG/ACT NASAL SUSPENSION (FLUTICASONE PROPIONATE) Use one spray each nostril twice daily; Route: NASAL ASPIRIN EC 81 MG ORAL TABLET DELAYED RELEASE (ASPIRIN) Take one tablet by mouth daily INDERAL LA 120 MG ORAL CAPSULE EXTENDED RELEASE 24 HOUR (PROPRANOLOL HCL) Take one tablet by mouth twice daily CITALOPRAM HBR TABS 20MG (CITALOPRAM HYDROBROMIDE) TAKE 1 TABLET DAILY /PSH - Past Medical History Cardiovascular: positive: High cholesterol Respiratory: positive: None Neuro: positive: Tremors Endocrine/Autoimmune: positive: None GI: positive: GERD : positive: Kidney stones HEENT: positive: None Psych: positive: Depression, Anxiety Musculoskeletal: positive: None Derm: positive: Other MRSA Hx?: No - Past Surgical History General: positive: Colonoscopy HEENT: positive: Cataracts, Tonsil/Adenoidectomy Derm: positive: Skin cancer surgery Social & Family Hx - Social History Does the pt smoke?: No Smoking Status: Never smoker Does the pt drink ETOH?: No Does the pt have substance abuse?: No - POLST Patient has POLST: No Meds/Allgy - Home Medications Home Medications: Ambulatory Orders Medication Instructions Recorded Confirmed Aspirin [Aspirin EC] 81 mg PO DAILY 09/20/19 09/20/19 Atorvastatin [Lipitor] 10 mg PO DAILY 09/20/19 09/20/19 Citalopram [CeleXA] 20 mg PO DAILY 09/20/19 09/20/19 Fexofenadine HCl [Zulema Allergy] 180 mg PO DAILY PRN 09/20/19 09/20/19 Fluticasone [Flonase] 1 sprays DANIA BID PRN 09/20/19 09/20/19 Propranolol HCl [Inderal Xl] 240 mg PO DAILY 09/20/19 09/20/19 Rabeprazole Sodium [Aciphex] 20 mg PO DAILY 09/20/19 09/20/19 Tolterodine Tartrate [Detrol LA] 4 mg PO DAILY 09/20/19 09/20/19 Topiramate 50 mg PO DAILY 09/20/19 09/20/19 - Allergies Allergies/Adverse Reactions: Allergies Allergy/AdvReac Type Severity Reaction Status Date / Time amoxicillin Allergy Unknown Verified 02/25/18 23:54 cephalexin Allergy Unknown Verified 08/10/19 08:40
[~2019-09-22 07:43] MED LIST: ACETAMINOPHEN 1,000 MG/100 ML 100 ML IV ONE; LIDOCAINE 1%-EPI 1:100000 20 ML MDV ONE
[2019-09-22] MEDS ORDERED: ePHEDrine 50 MG/ML VIAL IVP ONE (07:44)
[2019-09-22] MEDS ORDERED: fentaNYL 100 MCG/2 ML VIAL IVP ONE (07:44)
[2019-09-22] MEDS ORDERED: MIDAZOLAM 2 MG/2 ML VIAL IVP ONE (07:44)
[2019-09-22] MEDS ORDERED: ONDANSETRON 4 MG/2 ML VIAL IVP ONE (07:44)
[2019-09-22] MEDS ORDERED: PROPOFOL 200 MG/20 ML VIAL IVP ONE (07:44)
[2019-09-22] MEDS: LACTATED RINGERS 1,000 ML IV ONE (07:47)
[2019-09-22] MEDS: CELECOXIB 100 MG CAPSULE PO ONE (08:10)
[2019-09-22] MEDS: GABAPENTIN 400 MG CAPSULE ONE (08:10)
--- NOTE | 2019-09-22 08:12 | ANESTHESIA ---
Pre-Anesthesia VS, & Labs - Diagnosis Endometrial polyps - Procedure Myosure, D and C Hysteroscopy Vital Signs: Temp Pulse Resp BP Pulse Ox 36.5 C 75 16 143/68 H 96 09/22/19 07:52 09/22/19 07:52 09/22/19 07:52 09/22/19 07:52 09/22/19 07:52 Height 5 ft 3 in Weight (kg) 69 kg Body Mass Index 26.5 - NPO >8 hours - Is Patient ?: Not Applicable - Lab Results Lab results reviewed: Yes Home Medications and Allergies Home Medications: Ambulatory Orders Aspirin [Aspirin EC] 81 mg PO DAILY 09/20/19 Atorvastatin [Lipitor] 10 mg PO DAILY 09/20/19 Citalopram [CeleXA] 20 mg PO DAILY 09/20/19 Fexofenadine HCl [Zulema Allergy] 180 mg PO DAILY PRN 09/20/19 Fluticasone [Flonase] 1 sprays DANIA BID PRN 09/20/19 Propranolol HCl [Inderal Xl] 240 mg PO DAILY 09/20/19 Rabeprazole Sodium [Aciphex] 20 mg PO DAILY 09/20/19 Tolterodine Tartrate [Detrol LA] 4 mg PO DAILY 09/20/19 Topiramate 50 mg PO DAILY 09/20/19 Aspirin [Aspirin EC] 81 mg PO DAILY 09/20/19 Atorvastatin [Lipitor] 10 mg PO DAILY 09/20/19 Citalopram [CeleXA] 20 mg PO DAILY 09/20/19 Fexofenadine HCl [Zulema Allergy] 180 mg PO DAILY PRN 09/20/19 Fluticasone [Flonase] 1 sprays DANIA BID PRN 09/20/19 Propranolol HCl [Inderal Xl] 240 mg PO DAILY 09/20/19 Rabeprazole Sodium [Aciphex] 20 mg PO DAILY 09/20/19 Tolterodine Tartrate [Detrol LA] 4 mg PO DAILY 09/20/19 Topiramate 50 mg PO DAILY 09/20/19 Allergies/Adverse Reactions: Allergies Allergy/AdvReac Type Severity Reaction Status Date / Time amoxicillin Allergy Unknown Verified 02/25/18 23:54 cephalexin Allergy Unknown Verified 08/10/19 08:40 Anes History & Medical History - Anesthetic History Anesthesia Complications: reports: No previous complications Family history of Anesthesia Complications: Denies Family history of Malignant Hyperthermia: Denies - Medical History Cardiovascular: reports: High cholesterol Pulmonary: reports: None Gastrointestinal: reports: GERD Urinary: reports: Kidney stones Neuro: reports: None, Tremors Musculoskeletal: reports: None Endocrine/Autoimmune: reports: None Blood Disorders: reports: None Skin: reports: Other Smoking Status: Never smoker Psychosocial: reports: No issues indicated - Surgical History General: Colonoscopy Eyes Ears Nose Throat (EENT): Cataracts, Tonsil/Adenoidectomy Dermatologic: Skin cancer surgery Exam General: Alert, Oriented x3 Dental: WNL Mouth Openin Fingerbreadth Neck Mobility: Normal Mallampati classification: III Thyromental Distance: 4-6 cm Respiratory: Lungs clear Cardiovascular: Regular rate Mental/Cognitive Status: Alert/Oriented X3 Cognitive Status: Within normal limits Plan Anesthesia Type: General Consent for Procedure(s) Verified and Reviewed: Yes Code Status: Attempt Resuscitation ASA classification: 2-Mild systemic disease Is this case an emergency?: No
[2019-09-22] MEDS: LIDOCAINE 1%-EPI 1:100000 20 ML MDV SUBQ ONE ×2 (10:26)
[2019-09-22] MEDS: VASOPRESSIN 20 UNIT/ML VIAL IVP ONE (10:27)
[2019-09-22] MEDS ORDERED: VASOPRESSIN 20 UNIT/ML VIAL ONE (11:03)
--- NOTE | 2019-09-22 11:16 | OPERATIVE REPORT ---
Operative Report - General Procedure Date: 09/22/19 Planned Procedure: Hysteroscopy D&C with possible polypectomy/myomectomy Pre-Op Diagnosis: Endometrial polyp/nodules on ultrasound Procedure Performed: Hysteroscopy D&C and polypectomy Post Op Diagnosis: Same - Procedure Note Primary Surgeon: Kymberly Andrews MD Anesthesia Provider: Hannah Moralez CRNA Anesthesia Technique: General LMA Pathology: 1) Intrauterine secretions/fluid 2) Uterine contents IV Fluids (mL): 500 Estimated Blood Loss (mL): 5 Urine Output (mL): 30 (In and out catheterization at start of procedure) Indications: [address] scan for nephrolithiasis and was noted to have an adnexal mass. Follow-up us showed a simple appearing cyst but endoemtrium showed multiple nodules, the largest 9mm in greatest dimension, with intrauterine fluid collection. She presents for hysteroscopy D&C and likely polypectomy. Findings: Cervical os closed with release of moderate amount fo cloudy fluid once os was dilated. Right lateral aspect of uterine cavity showed an approximately 1 cm nodule with smaller nodules scattered along the left lateral wall and a field of smaller nodules on the posterior wall/floor of the endometrial cavity. Tubal ostia noted bilaterally. Complications: none - Other Other Information/Narrative: Risks benefits and alternatives to the procedure were reviewed. Consent was again confirmed. Patient was taken to the operating room where she underwent general anesthesia. She was positioned in dorsolithotomy position with legs resting in yellowfin stirrups. She was prepped and draped in the usual sterile fashion. Preoperative antibiotics were not indicated. Preoperative checklist was performed. Exam under anesthesia was performed. Speculum was placed in the vagina and the cervix was visualized. Single-tooth tenaculum was placed at the anterior cervical lip. Paracervical block was administered using a total of 20 cc of 1% lidocaine with epinephrine was injected at the 4:00 and 8:00 positions lateral to the portio of the cervix. The cervical os was closed at external os. Inital dialtion released moderate volume of cloudy fluid that was collected and sent to pathology. A total of 5 cc of vasopressin in NS (10:50) was injected into the cervix. It was then serially dilated with Hegar dilators to accommodate the caliber of the diagnostic hysteroscope. The hysteroscope was inserted and findings were noted as above. The hysteroscopic morcellator was inserted through the operative port. The intrauterine polyps were morcellated under direct visualization. Uterine cavity was smooth at close of the procedure. Hysteroscope was removed. Sharp curettage D&C was performed with sharp curettage. All instruments were removed from the uterus. Tenaculum was removed. Tenaculum sites were noted to be hemostatic. All instruments were removed from the vagina. Procedure was well-tolerated without complication. Fluid deficit:160 NS
[2019-09-22 11:46] VITALS: BP 119/62
== END 2019-09-22 07:44 | disposition home or self-care (01) ==
LOC: SDS 07:43
PROVIDERS: ATTEND Obstetrics & Gynecology
PROC: 0UDB7ZZ Extraction of Endometrium, Via Natural or Artificial Opening (ICD-10-PCS; 2019-09-22)
PROC: 0UB98ZZ Excision of Uterus, Via Natural or Artificial Opening Endoscopic (ICD-10-PCS; principal; 2019-09-22 09:00)
DX: N84.0 Polyp of corpus uteri (principal); N83.202 Unspecified ovarian cyst, left side
CPT/HCPCS: 58558; A9270; J0131; J7120

== ENCOUNTER 2019-11-23 13:37 | Outpatient (CLI) | payer MEDICARE, OTHER ==
--- NOTE | 2019-11-23 15:46 | Ultrasound Report ---
Reason: OVARIAN MASS Procedure Date: 11/23/2019 Accession Number: [id number] / [id number] Procedure: US - Pelvic w/Transvaginal CPT Code: Final Report FULL RESULT: EXAM: PELVIC ULTRASOUND EXAM DATE: 11/23/2019 02:53 PM. CLINICAL HISTORY: OVARIAN MASS. COMPARISON: PELVIC W/TRANSVAGINAL 08/23/2019 3:23 PM. TECHNIQUE: Realtime transabdominal pelvic scan performed to identify the uterus and adnexa and as an overview of other pelvic structures, followed by transvaginal scan to provide greater detail of the uterus and adnexa, with static image documentation. FINDINGS: Uterus: 6.0 x 2.6 x 3.9 cm, volume 32 cc. Retroverted position. Normal overall size and echotexture. Masses: An anterior fundal hypoechoic submucosal fibroid measures 5 x 6 x 6 mm. Endometrium: 2 mm. No masses or definite nodules identified. The extensive endometrial canal fluid and nodularity seen previously has resolved. Cervix: Unremarkable. Right Ovary: 1.4 x 1.3 x 0.7 cm, volume 0.7 cc. Normal echotexture and blood flow. Left Ovary: 4.2 x 2.6 x 2.5 cm, volume 14 cc. A simple cyst measures 3.9 x 2.3 x 2.5 cm, previously 4.0 cm unchanged. No hemorrhage or torsion evident. Free Fluid: None. Other: None. IMPRESSION: 1. Probable 6 mm anterior fundal submucosal fibroid. 2. Significant fluid and nodularity within the endometrial canal seen previously has resolved. 3. 3.9 cm simple left ovarian cyst unchanged. RADIA
== END 2019-11-23 13:38 | disposition home or self-care (01) ==
LOC: DI 13:37
PROVIDERS: ATTEND Obstetrics & Gynecology
DX: N83.292 Other ovarian cyst, left side (principal); D25.0 Submucous leiomyoma of uterus
CPT/HCPCS: 76830; 76856

== ENCOUNTER 2019-12-09 12:44 | Outpatient (CLI) | payer MEDICARE, OTHER | END 2019-12-09 12:45 | disposition home or self-care (01) | LOC: LAB 12:44 | PROVIDERS: ATTEND Obstetrics & Gynecology | DX: N83.9 Noninflammatory disorder of ovary, fallopian tube and broad ligament, unspecified (principal) | CPT/HCPCS: 36415; 86304 ==

== ENCOUNTER 2020-02-20 20:51 | Emergency (ER) | payer MEDICARE, OTHER ==
[2020-02-20 21:13] LABS: BASOPHILS % (AUTO) 0.4 %; EOSINOPHILS # (AUTO) 0.1 10^3/uL (0.0-0.7); EOSINOPHILS % (AUTO) 1.6 %; HGB - HEMOGLOBIN 12.7 g/dL (12.0-16.0); LYMPHOCYTES # (AUTO) 1.8 10^3/uL (1.5-3.5); LYMPHOCYTES % (AUTO) 25.8 %; MEAN CORPUSCULAR HEMOGLOBIN 25.8 pg (27.0-31.0); MEAN CORPUSCULAR HGB CONC 30.2 g/dL (32.0-36.0); MEAN CORPUSCULAR VOLUME 85.4 fL (81.0-99.0); MEAN PLATELET VOLUME 10.4 fL (7.9-10.8); MONOCYTES # (AUTO) 0.7 10^3/uL (0.0-1.0); MONOCYTES % (AUTO) 9.4 %; NEUTROPHILS # (AUTO) 4.3 10^3/uL (1.5-6.6); NEUTROPHILS % (AUTO) 62.5 %; PLT - PLATELET COUNT 265 10^3/uL (130-450); RED BLOOD COUNT 4.92 10^6/uL (4.20-5.40); RED CELL DISTRIBUTION WIDTH 17.1 % (12.0-15.0); WHITE BLOOD COUNT 6.9 x10^3/uL (4.8-10.8)
[2020-02-20 21:19] LABS: BILIRUBIN,URINE NEGATIVE (NEGATIVE); GLUCOSE, URINE (UA) NEGATIVE (NEGATIVE); KETONES,URINE (UA) NEGATIVE (NEGATIVE); LEUKOCYTE ESTERASE, URINE LARGE (NEGATIVE); NITRITE,URINE POSITIVE (NEGATIVE); OCCULT BLOOD,URINE MODERATE (NEGATIVE); PROTEIN,URINE TRACE mg/dL (NEGATIVE); UROBILINOGEN,URINE 0.2 (NORMAL) E.U./dL (NORMAL)
[2020-02-20 21:21] LABS: CLARITY,URINE HAZY (CLEAR)
[2020-02-20 21:27] LABS: ALBUMIN 3.8 g/dL (3.2-5.5); ALBUMIN/GLOBULIN RATIO 1.1 (1.0-2.2); BILIRUBIN,TOTAL 0.6 mg/dL (0.2-1.0); TOTAL PROTEIN 7.2 g/dL (6.7-8.2)
[2020-02-20 21:28] LABS: BACTERIA,URINE Many /HPF (None Seen); RBC,URINE TNTC /HPF (0-5); SQUAMOUS EPITHELIAL CELL,UR RARE Squamous (<= Few)
[2020-02-20] MEDS ORDERED: KETOROLAC 30 MG/ML VIAL IVP STA (21:33)
[2020-02-20] MEDS ORDERED: HYDROmorphone 1 MG/ML CARPUJECT IVP STA (21:33)
[2020-02-20] MEDS ORDERED: ONDANSETRON 4 MG/2 ML VIAL IVP STA (21:33)
--- NOTE | 2020-02-20 21:35 | ED Physician Documentation ---
PD HPI ABD PAIN - Stated complaint Stated Complaint: LT BACK PX - Chief complaint Chief Complaint: Abd Pain - History obtained from History obtained from: Patient (69-year-old woman with history of recurrent renal colic, never needed an intervention developed fairly sudden onset left lower abdominal pain that was migratory this evening similar to prior episodes of renal colic. Associate with nausea but no vomiting. No fevers.) Review of Systems Ten Systems: 10 systems reviewed and negative Constitutional: reports: Reviewed and negative Cardiac: reports: Reviewed and negative Respiratory: reports: Reviewed and negative PD PAST MEDICAL HISTORY - Past Medical History Cardiovascular: High cholesterol Respiratory: None Neuro: None, Tremors Endocrine/Autoimmune: None GI: GERD : Kidney stones HEENT: None Psych: Depression, Anxiety Musculoskeletal: None Derm: Other - Past Surgical History Past Surgical History: Yes General: Colonoscopy HEENT: Cataracts, Tonsil/Adenoidectomy Derm: Skin cancer surgery - Present Medications Home Medications: Ambulatory Orders Medication Instructions Recorded Confirmed Aspirin [Aspirin EC] 81 mg PO DAILY 09/20/19 09/22/19 Atorvastatin [Lipitor] 10 mg PO DAILY 09/20/19 09/22/19 Citalopram [CeleXA] 20 mg PO DAILY 09/20/19 09/22/19 Fexofenadine HCl [Zulema Allergy] 180 mg PO DAILY PRN 09/20/19 09/22/19 Fluticasone [Flonase] 1 sprays DANIA BID PRN 09/20/19 09/22/19 Propranolol HCl [Inderal Xl] 240 mg PO DAILY 09/20/19 09/22/19 Rabeprazole Sodium [Aciphex] 20 mg PO DAILY 09/20/19 09/22/19 Tolterodine Tartrate [Detrol LA] 4 mg PO DAILY 09/20/19 09/22/19 Topiramate 50 mg PO DAILY 09/20/19 09/20/19 Ciprofloxacin HCl [Cipro] 500 mg PO BID #20 tablet 02/20/20 Hydrocodone/Acetaminophen 1 - 2 each PO Q6H PRN #14 tablet 02/20/20 [Hydrocodon-Acetaminophen 5-325] Tamsulosin [Flomax] 0.4 mg PO DAILY #14 capsule 02/20/20 - Allergies Allergies/Adverse Reactions: Allergies Allergy/AdvReac Type Severity Reaction Status Date / Time amoxicillin Allergy Unknown Verified 02/20/20 20:56 cephalexin Allergy Unknown Verified 02/20/20 20:56 - Social History Does the pt smoke?: No Smoking Status: Never smoker Does the pt drink ETOH?: No Does the pt have substance abuse?: No - Immunizations Immunizations are current?: Yes - POLST Patient has POLST: No PD ED PE NORMAL - Vitals Vital signs reviewed: Yes - General General: Alert and oriented X 3, Other (She appears uncomfortable) - Neck Neck: Supple, no meningeal sign, No bony TTP - Abdomen Abdomen: Normal bowel sounds, Soft, Non tender - Back Back: No CVA TTP, No spinal TTP - Derm Derm: Normal color, Warm and dry, No rash - Extremities Extremities: No edema, No calf tenderness / cord - Neuro Neuro: Alert and oriented X 3, Normal speech Results - Vitals Vitals: Vital Signs - 24 hr 02/20/20 02/21/20 20:56 00:01 Temperature 36.5 C Heart Rate 71 69 Respiratory 14 18 Rate Blood Pressure 128/66 113/61 O2 Saturation 96 94 Oxygen O2 Source Room air - Labs Labs: Laboratory Tests 02/20/20 02/20/20 02/20/20 21:06 21:10 21:10 WBC 6.9 RBC 4.92 Hgb 12.7 Hct 42.0 MCV 85.4 MCH 25.8 L MCHC 30.2 L RDW 17.1 H Plt Count 265 MPV 10.4 Neut # (Auto) 4.3 Lymph # (Auto) 1.8 Haines # (Auto) 0.7 Eos # (Auto) 0.1 Baso # (Auto) 0.0 Absolute Nucleated RBC 0.00 Nucleated RBC % 0.0 Sodium 138 Potassium 3.7 Chloride 108 Carbon Dioxide 23 Anion Gap 7.0 BUN 22 H Creatinine 1.0 Estimated GFR (MDRD) 55 L Glucose 165 H Calcium 9.0 Total Bilirubin 0.6 AST 22 ALT 20 Alkaline Phosphatase 109 Total Protein 7.2 Albumin 3.8 Globulin 3.4 Albumin/Globulin Ratio 1.1 Lipase 35 Urine Color YELLOW Urine Clarity HAZY Urine pH 6.0 Ur Specific [place] 1.025 Urine Protein TRACE Urine Glucose (UA) NEGATIVE Urine Ketones NEGATIVE Urine Occult Blood MODERATE H Urine Nitrite POSITIVE H Urine Bilirubin NEGATIVE Urine Urobilinogen 0.2 (NORMAL) Ur Leukocyte Esterase LARGE H Urine RBC TNTC H Urine WBC >25 H Ur Squamous Epith Cells RARE Squamous Urine Bacteria Many H Ur Microscopic Review INDICATED Urine Culture Comments INDICATED - Rads (name of study) CT KUB Radiology: EMP read contemporaneously PD MEDICAL DECISION MAKING - ED course ED course: 69-year-old woman with recurrent renal colic presents with some UTI symptoms but more severe left-sided abdominal pain tonight. She does not have a fever or white count but her urinalysis does suggest infection. CT to my eye shows a 6 mm distal ureteral obstructing stone. Call was placed to Dr. Nikki Gamez, urology at [place] [id number] for consultation. She was administered levofloxacin IV. Case was discussed with the urologist and she recommended IV antibiotics here in [place] to go and clinical follow-up. Departure - Departure Disposition: Home, Self Care Clinical Impression: Pyelonephritis, Renal colic Condition: Good Record reviewed to determine appropriate education?: Yes Instructions: Pyelonephritis Dc, ED Kidney Infec Female Follow-Up: Nikki Gamez MD [Physician No Access] - Tomorrow Prescriptions: Ciprofloxacin HCl [Cipro] 500 mg PO BID #20 tablet Hydrocodone/Acetaminophen [Hydrocodon-Acetaminophen 5-325] 1 - 2 each PO Q6H PRN #14 tablet PRN Reason: pain Tamsulosin [Flomax] 0.4 mg PO DAILY #14 capsule Comments: I spoke with the urologist listed on this form tonight. She recommended antibiotics. You should be seen in clinic, call tomorrow for an appointment. Mention that you were in the ER tonight. Return anytime if worse, if pain is uncontrolled, if you develop shaking chills or fever. Discharge Date/Time: 02/21/20 00:02
[2020-02-20] MEDS ORDERED: CIPROFLOXACIN 400 MG/200 ML 200 ML IV ONE (22:31)
[2020-02-20] MEDS ORDERED: CIPROFLOXACIN 400 MG/200 ML 200 ML IV SCH (22:45)
[2020-02-20] MEDS ORDERED: levoFLOXacin 500 MG/100 ML 500 MG/100 ML BAG IV ONE (22:48)
[2020-02-20] MEDS ORDERED: HYDROcod/ACET 5/325 Prepack 4 PO STA (23:00)
[2020-02-20] MEDS ORDERED: TAMSULOSIN 0.4 MG CAPSULE PO STA (23:00)
[2020-02-20] MEDS ORDERED: ONDANSETRON ODT 4 MG Prepack 2 TL STA (23:00)
--- NOTE | 2020-02-20 23:29 | CT Report ---
Reason: L flenk pain Procedure Date: 02/20/2020 Accession Number: [id number] / [id number] Procedure: CT - Abdomen/Pelvis WO CPT Code: Final Report FULL RESULT: EXAM: CT ABDOMEN AND PELVIS (CT KUB) EXAM DATE: 02/20/2020 10:35 PM. CLINICAL HISTORY: Left flank pain. COMPARISONS: ABDOMEN/PELVIS W/O 02/26/2018 12:50 AM ABDOMEN/PELVIS W/ 08/09/2019 7:33 PM PELVIC W/TRANSVAGINAL 11/23/2019 2:09 PM. TECHNIQUE: Routine axial helical CT imaging was performed through the abdomen and pelvis without IV contrast. Reconstructions: Coronal and sagittal. In accordance with CT protocol optimization, one or more of the following dose reduction techniques were utilized for this exam: automated exposure control, adjustment of mA and/or KV based on patient size, or use of iterative reconstructive technique. FINDINGS: Lung bases: Bibasilar probable atelectasis. Moderate hiatal hernia. Liver: Unremarkable. Gallbladder: Unremarkable. Bile ducts: Unremarkable. Moderate diffuse pancreatic atrophy. Spleen: Small calcification in the spleen. Adrenals: Unremarkable. Kidneys: Multiple bilateral renal calculi, 1 of the largest seen at the lower pole left kidney measuring 4 mm at the lower pole left kidney. Mild to moderate left hydronephrosis and hydroureter being caused by a left distal ureteral calculus measuring 6 x 5 mm. No right hydronephrosis. Bowel: Normal appendix. No acute bowel findings are seen. No free fluid or free air. Pelvis: The bladder is unremarkable. Left ovarian cyst measuring 3.2 cm. Bones: No acute bone findings. Vasculature: No acute findings. IMPRESSION: 1. Moderate hiatal hernia. 2. Multiple bilateral renal calculi, 1 of the largest seen at the lower pole left kidney measuring 4 mm at the lower pole left kidney. Mild to moderate left hydronephrosis and hydroureter being caused by a left distal ureteral calculus measuring 6 x 5 mm. 3. Left ovarian cyst measuring 3.2 cm, mildly increased compared to the prior. The prior pelvic ultrasound showed this to be a simple left ovarian cyst. Annual follow-up pelvic ultrasounds recommended for surveillance. 4. See above. RADIA
[2020-02-21 00:02] VITALS: BP 113/61
== END 2020-02-21 00:02 | disposition home or self-care (01) ==
LOC: ED 20:51
DX: N12 Tubulo-interstitial nephritis, not specified as acute or chronic (principal); K21.9 Gastro-esophageal reflux disease without esophagitis; F32.9 Major depressive disorder, single episode, unspecified; F41.9 Anxiety disorder, unspecified; R25.1 Tremor, unspecified; Z85.828 Personal history of other malignant neoplasm of skin; Z87.442 Personal history of urinary calculi; Z79.82 Long term (current) use of aspirin
CPT/HCPCS: 36415; 74176; 80053; 81001; 83690; 85025; 87086; 87181; 96365; 96375; 99283; 99284; A9270; J1170; 81003

== ENCOUNTER 2020-03-01 11:07 | Outpatient (CLI) | payer MEDICARE, OTHER ==
--- NOTE | 2020-03-01 18:46 | XRAY Report ---
Reason: KIDNEY STONE Procedure Date: 03/01/2020 Accession Number: [id number] / [id number] Procedure: XR - Abdomen 1 View X-Ray CPT Code: 48236 Final Report FULL RESULT: EXAM: ABDOMEN RADIOGRAPHY EXAM DATE: 03/01/2020 11:37 AM. CLINICAL HISTORY: Kidney stones. COMPARISON: ABDOMEN/PELVIS W/O 02/20/2020 10:26 PM. ABDOMEN/PELVIS W/ 08/09/2019 7:33 PM. ABDOMEN/PELVIS W/O 02/26/2018 12:50 AM. TECHNIQUE: 1 view. FINDINGS: Bowel Gas Pattern: Bowel gas pattern normal. Renal calculi as seen on the recent CT within both kidneys are not as well delineated although the largest in the left measures up to 5 mm which did appear to be approximately 2 on the left seen radiographically and on the right measures up to 4 mm of which there appeared to be only 1 radiographically. No calculi are seen in the expected position of the ureters or bladder. Other: Degenerative changes. IMPRESSION: 1. Bilateral renal calculi. RADIA
== END 2020-03-01 11:08 | disposition home or self-care (01) ==
LOC: DI 11:07
PROVIDERS: ATTEND Urology
DX: N20.0 Calculus of kidney (principal)
CPT/HCPCS: 74018

== ENCOUNTER 2020-03-21 15:51 | Outpatient (CLI) | payer MEDICARE, OTHER ==
--- NOTE | 2020-03-21 17:08 | Ultrasound Report ---
Reason: F/U LT OV CYST Procedure Date: 03/21/2020 Accession Number: [id number] / [id number] Procedure: US - Pelvic Complete CPT Code: Final Report FULL RESULT: PROCEDURE: Pelvic Complete INDICATIONS: F/U LT OV CYST TECHNIQUE: Real-time transabdominal scanning was performed of the pelvic organs, with image documentation. Patient refused transvaginal exam. COMPARISON: Pelvic ultrasound 11/23/2019, 02/20/2020 FINDINGS: Uterus: Uterus is normal in size at 6.8 x 3.1 x 3.9 cm. There is an ill-defined focus of low echogenicity within the uterus measuring 5 x 6 x 6 mm. Endometrium is not well evaluated with transabdominal view. Transvaginal was not performed. Ovaries: Ovaries are not visualized. Other: No free pelvic fluid. Limited scanning through the kidneys shows no hydronephrosis. Bilateral nonobstructing renal stones and cysts are noted. IMPRESSION: 1. Ovaries are not visualized. 2. Limited visualization of the uterus and endometrium. Ill-defined subcentimeter focus of echogenicity is noted within the uterus. It is not well-characterized with transabdominal imaging. This could represents a small fibroid. Reviewed by: Shannan Sanchez MD on 03/21/2020 5:07 PM PDT Approved by: Shannan Sanchez MD on 03/21/2020 5:07 PM PDT Station ID: [id number]
== END 2020-03-21 15:52 | disposition home or self-care (01) ==
LOC: DI 15:51
PROVIDERS: ATTEND Obstetrics & Gynecology
DX: N83.9 Noninflammatory disorder of ovary, fallopian tube and broad ligament, unspecified (principal)
CPT/HCPCS: 76856

== ENCOUNTER 2020-11-16 08:00 | Outpatient (CLI) | payer MEDICARE, OTHER ==
[2020-11-16 13:41] LABS: BASOPHILS % (AUTO) 0.7 %; EOSINOPHILS # (AUTO) 0.1 10^3/uL (0.0-0.7); EOSINOPHILS % (AUTO) 1.9 %; HGB - HEMOGLOBIN 12.6 g/dL (12.0-16.0); LYMPHOCYTES # (AUTO) 1.4 10^3/uL (1.5-3.5); LYMPHOCYTES % (AUTO) 33.5 %; MEAN CORPUSCULAR HGB CONC 29.9 g/dL (32.0-36.0); MEAN CORPUSCULAR VOLUME 83.5 fL (81.0-99.0); MEAN PLATELET VOLUME 11.5 fL (7.9-10.8); MONOCYTES # (AUTO) 0.4 10^3/uL (0.0-1.0); MONOCYTES % (AUTO) 8.5 %; NEUTROPHILS # (AUTO) 2.3 10^3/uL (1.5-6.6); NEUTROPHILS % (AUTO) 55.2 %; PLT - PLATELET COUNT 275 10^3/uL (130-450); RED BLOOD COUNT 5.04 10^6/uL (4.20-5.40); RED CELL DISTRIBUTION WIDTH 17.2 % (12.0-15.0); WHITE BLOOD COUNT 4.1 x10^3/uL (4.8-10.8)
[2020-11-16 14:17] LABS: ALBUMIN 3.6 g/dL (3.2-5.5); ALBUMIN/GLOBULIN RATIO 1.2 (1.0-2.2); ALKALINE PHOSPHATASE 103 IU/L (42-121); ALT ALANINE AMINOTRANSFERASE 15 IU/L (10-60); AST ASPARTATE AMINOTRANSFERASE 18 IU/L (10-42); BILIRUBIN,TOTAL 0.5 mg/dL (0.2-1.0); BUN - BLOOD UREA NITROGEN 15 mg/dL (6-20); CALCIUM 9.3 mg/dL (8.5-10.3); CARBON DIOXIDE - CO2 24 mmol/L (21-32); CHLORIDE 102 mmol/L (101-111); CHOL/HDL RATIO 5.6 (<4.4); CHOLESTEROL 240 mg/dL; CREATININE 0.9 mg/dL (0.4-1.0); GLUCOSE 97 mg/dL (70-100); HDL CHOLESTEROL 43 mg/dL; LDL CHOLESTEROL,CALCULATED 177 mg/dL; LDL/HDL RATIO 4.1 (<4.4); TOTAL PROTEIN 6.7 g/dL (6.7-8.2); VLDL CHOLESTEROL 20 mg/dL
== END 2020-11-16 23:59 | disposition home or self-care (01) ==
LOC: LAB.WCP 08:00
PROVIDERS: ATTEND Internal Medicine
DX: E78.5 Hyperlipidemia, unspecified (principal); N83.9 Noninflammatory disorder of ovary, fallopian tube and broad ligament, unspecified
CPT/HCPCS: 36415; 80053; 80061; 83721; 84443; 85025; 86304

== ENCOUNTER 2021-01-12 15:18 | Outpatient (CLI) | payer MEDICARE, OTHER ==
--- NOTE | 2021-01-13 00:51 | Ultrasound Report ---
PROCEDURE: Pelvic w/Transvaginal INDICATIONS: OVARIAN MASS TECHNIQUE: Real-time scanning was performed of the pelvic organs, with image documentation. Additional endovagi nal scanning was necessary due to incomplete visualization of the adnexal and endometrial structures by transabdominal scanning. COMPARISON: November 23, 2019 and March 21, 2020 pelvic ultrasounds. FINDINGS: No pathologic free abdominal or pelvic fluid. Uterus: Uterus is normal in size at 5.5 x 2.2 x 4.8 cm and retroverted The endometrium measures 6 m m in combined thickness. There is a focal hypoechoic structure within the endometrium towards the fu ndus measuring approximately 9 x 6 x 4 mm. Ovaries: Right ovary is not visualized due to overlying bowel gas. Left ovary measures 4.7 x 2.6 x 2 .9 cm. There is a cluster of anechoic cysts in the left ovary measures 4.1 x 2.5 x 2.6 cm. IMPRESSION: Possible subcentimeter endometrial polyp versus submucosal fibroid. No suspicious ovarian findings. Cluster of simple left ovarian cysts measuring up to 4.1 cm. Reviewed by: Hero Tafoya on 01/12/2021 11:50 PM FRANCINE Approved by: Hero Tafoya on 01/12/2021 11:50 PM FRANCINE Station ID: [id number]
== END 2021-01-12 15:19 | disposition home or self-care (01) ==
LOC: DI 15:18
PROVIDERS: ATTEND Internal Medicine
DX: N83.9 Noninflammatory disorder of ovary, fallopian tube and broad ligament, unspecified (principal); N83.202 Unspecified ovarian cyst, left side